=== PATIENT | female | born 1990 ===

== ENCOUNTER 2016-12-07 06:02 | Day surgery (SDC) | payer BC ==
[~2016-12-07] VITALS: Ht 165.1 cm; Wt 72.1 kg
[2016-12-07] VITALS (9 sets, daily range): BP systolic 109–128; BP diastolic 58–86
[~2016-12-07 06:02] MED LIST: BREO ELLIPTA 11 EACH IH
[2016-12-07] MEDS ORDERED: Dexamethasone 4mg/ml vial ONE ×2 (07:24→07:30)
[2016-12-07] MEDS ORDERED: Betadine 10% Oint 15gm TOPIC ONE (07:24)
[2016-12-07] MEDS ORDERED: Bacitracin Oint 15gm Tube TOPIC ONE (07:24)
[2016-12-07] MEDS ORDERED: Bupivacaine 0.5% Inj 30 ml vial INJ ONE (07:24)
[2016-12-07] MEDS ORDERED: Lidocaine 1% Plain 30 ml INJ ONE (07:24)
[2016-12-07] MEDS ORDERED: Midazolam 2mg/2ml Inj ONE (07:30)
[2016-12-07] MEDS ORDERED: Propofol 10mg/ml 20ml IV ONE (07:30)
[2016-12-07] MEDS ORDERED: Lidocaine 1% MPF 10mg/ml 5ml ONE (07:30)
[2016-12-07] MEDS ORDERED: LR 1000ml ONE (07:30)
--- NOTE | 2016-12-07 07:36 | Pre-Procedure Note/Attestation ---
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 I attest that, if there was a reasonable possibility of needing a blood transfusion, the patient (or the patient's legal publications sales representative) was given the [facility] standardized written summary, pursuant to the Surjit Von [place] Blood Safety Act ([place] Health and Safety Code # 1645, as amended). I attest that I re-evaluated the patient just prior to the surgery and that there has been no change in the patient's H&P, except as documented below: KAITLIN GEORGES Dec 07, 2016 07:36
[2016-12-07] MEDS ORDERED: LR 1000ml 1,000 ML IVLG SCH (07:45)
[2016-12-07] MEDS ORDERED: Meperidine 25mg/0.5ml Inj (FOR RIGORS ONLY) IV PRN (07:45)
[2016-12-07] MEDS ORDERED: Norco 5mg/325mg tab ORAL PRN (07:45)
[2016-12-07] MEDS ORDERED: Norco 7.5mg/325mg tab ORAL PRN (07:45)
[2016-12-07] MEDS ORDERED: Hydromorphone 0.5mg/0.5ml inj IVP PRN (07:45)
[2016-12-07] MEDS ORDERED: fentaNYL 100 mcg/2 mL IV PRN (07:45)
[2016-12-07] MEDS ORDERED: Oxycodone/Acetaminophen 5-325 ORAL PRN (07:45)
[2016-12-07] MEDS ORDERED: Midazolam 2mg/2ml Inj IVP PRN (07:45)
[2016-12-07] MEDS ORDERED: Ketorolac 30mg Inj IV PRN (07:45)
[2016-12-07] MEDS ORDERED: DiphenhydrAMINE 50mg/ml Inj IVP PRN (07:45)
[2016-12-07] MEDS ORDERED: Ketorolac 60mg Inj IV PRN (07:45)
[2016-12-07] MEDS ORDERED: Atropine Inj 1mg/10ml Syr IV PRN (07:45)
[2016-12-07] MEDS ORDERED: LORazepam Inj 2mg/ml 1ml IV PRN (07:45)
[2016-12-07] MEDS ORDERED: Metoclopramide 10mg/2ml Inj IVP PRN (07:45)
--- NOTE | 2016-12-07 07:45 | Anethesia Preoperative Eval ---
Anesthesia Pre-op PMH/ROS General Date of Evaluation: Dec 07, 2016 Time of Evaluation: 07:36 Anesthesiologist: Madelyn ASA Score: ASA 2 Mallampati Score Class I : Soft palate, uvula, fauces, pillars visible Class II: Soft palate, uvula, fauces visible Class III: Soft palate, base of uvula visible Class IV: Only hard plate visible Mallampati Classification: Class I Surgeon: Lakia Diagnosis: R Hallux Valgus Surgical Procedure: R Bunionectomy Anesthesia History: none Family History: no anesthesia problems Allergies: Uncoded Allergies: HAIR DYE (Allergy, Severe, 12/06/16) SKIN SWELLING KJ (Allergy, Severe, 12/06/16) SKIN SWELLS UP Medications: see eMAR Past Medical History Pulmonary: Reports: asthma - Bronchitis Anesthesia Pre-op Phys. Exam Physician Exam Last Vital Signs Date Time Temp Pulse Resp B/P Pulse Ox O2 Delivery O2 Flow Rate FiO2 12/07/16 06:33 97.5 60 18 109/58 99 Room Air Constitutional: NAD Neurologic: CN 2-12 intact Cardiovascular: RRR Respiratory: CTA Gastrointestinal: S/NT/ND Airway Exam Mallampati Score: Class I MO: full ROM: full Teeth: intact Anesthesia Pre-op A/P Labs Urine Test Test 12/07/16 06:10 Urine HCG, Qualitative Negative Risk Assessment & Plan Assessment: ASA 2 Plan: GA, BIS Status Change Before Surgery: No Pre-Antibiotics Dru Gram Ancef IV Given Within 1 Hr of Incision: Yes Time Given: 07:47 Marty Joshi MD Dec 07, 2016 07:45
--- NOTE | 2016-12-07 08:14 | 48 Hour Post Anesthesia Eval ---
Post Anesthesia Evaluation Procedure: R Bunionectomy Date of Evaluation: Dec 07, 2016 Time of Evaluation: 11:46 Blood Pressure Systolic: 112 0: 64 Pulse Rate: 78 Respiratory Rate: 18 Temperature (Fahrenheit): 98.6 O2 Sat by Pulse Oximetry: 100 Airway: patent Nausea: No Vomiting: No Pain Intensity: 2 Hydration Status: adequate Cardiopulmonary Status: Stable Mental Status/LOC: patient returned to baseline Follow-up Care/Observations: 0 Post-Anesthesia Complications: 0 Follow-up care needed: ready to discharge Marty Joshi MD Dec 07, 2016 08:14
--- NOTE | 2016-12-07 08:14 | Immediate Post-Op Evaluation ---
Immediate Post-Op Evalulation Immediate Post-Op Evalulation Procedure: R Bunionectomy Date of Evaluation: Dec 07, 2016 Time of Evaluation: 09:40 IV Fluids: 1000 LR Blood Products: 0 Estimated Blood Loss: 7 Urinary Output: 0 Blood Pressure Systolic: 115 Blood Pressure Diastolic: 65 Pulse Rate: 81 Respiratory Rate: 16 O2 Sat by Pulse Oximetry: 100 Temperature (Fahrenheit): 99 Pain Score (1-10): 2 Nausea: No Vomiting: No Complications 0 Patient Status: awake, reacts, patent, extubated, none Hydration Status: adequate Dru Gram Ancef IV Given Within 1 Hr of Incision: Yes Time Given: 07:47 Marty Joshi MD Dec 07, 2016 08:14
--- NOTE | 2016-12-07 09:28 | Brief Operative Note ---
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
--- NOTE | 2016-12-07 13:35 | Diagnostic Imaging Report ---
Indication: POST-OP, status post bunionectomy Technique: 3 views right foot Comparison: none Findings: Patient is status post bunionectomy. Single surgical screw is seen reducing first metatarsal osteotomy. Some retained air from the surgical wound is seen within the soft tissues. No acute fractures. No dislocations. Joint spaces are preserved Impression: Postoperative right foot, as described. No unusual features
--- NOTE | 2016-12-07 21:40 | History and Physical Report ---
DATE OF ADMISSION: 12/07/2016 Podiatric History And Physical HISTORY OF PRESENT ILLNESS: This is a 26-year-old white female, that is admitted today for an elective right foot surgery. The patient has been complaining of pain from her bunions for the past two years. She tried conservative care utilizing orthotics, wide shoe gear, and padding without any relief of pain. The patient was consulted on bunionectomy and elected to proceed with surgery of the right foot first. PAST MEDICAL HISTORY: Remarkable for asthma. MEDICATIONS: Albuterol inhaler p.r.n. ALLERGIES: None. PODIATRIC PHYSICAL EXAMINATION: VASCULAR STUDIES: Dorsalis pedis and posterior tibial arteries are equally palpable measuring 2/4 bilaterally. The capillary filling time is less than 3 seconds to all digits bilaterally. Homans sign is negative. No varicosities are noted in bilateral lower extremities. NEUROLOGICAL EXAMINATION: Reveals intact reflexes of Achilles and patellar measuring 2/4 bilaterally. Sensation, vibration, and proprioception are all intact of bilateral lower extremity. Babinski is negative. Clonus is absent bilaterally. MUSCULOSKELETAL EXAMINATION: Reveals stage III hallux abductovalgus with bunion deformity, bilateral foot. Showing first metatarsophalangeal joint range of motion is full without crepitation bilaterally. Palpable pain is noted over the medial bunion bilaterally. There are semi-reducible hammertoe deformities of digits 2 through 5 bilaterally. Pes planovalgus deformity is noted bilaterally with weight bearing. DERMATOLOGICAL EXAMINATION: There are no lesions or scar on the bilateral lower extremities. The patient has tattoos over the lateral aspect of the foot and right leg. All nails are present and healthy bilaterally. ASSESSMENT: Hallux abductovalgus with bunion deformity. PLAN: The patient is admitted today for outpatient bunionectomy and osteotomy of her right foot. Risks, complications, and alternative treatments were discussed with the patient. The patient was given postoperative medication and postoperative instructions. Patrick Dorman D.P.M. DR: SUNIL JOB#: [id number] CC:
--- NOTE | 2016-12-07 21:40 | Operative Note - Dictated ---
DATE OF OPERATION: 12/07/2016 SURGEON: Patrick Dorman D.P.M. ANESTHESIOLOGIST: Marty Joshi M.D. ANESTHESIA: General. PREOPERATIVE DIAGNOSIS: Hallux abductovalgus with bunion deformity, right foot. POSTOPERATIVE DIAGNOSIS: Hallux abductovalgus with bunion deformity, right foot. PROCEDURE PERFORMED: Chevron osteotomy with screw fixation, right foot. PROCEDURE IN DETAIL: The patient was brought to the operating room and was placed on the operating room table in the supine position. Intravenous sedation was administered by the anesthesiologist. Local anesthesia consisting of 0.5% Marcaine plain, a total of 18 mL was administered to the right foot. An ankle tourniquet was applied to the right lower extremity. The foot was prepped and draped in the usual sterile manner. An Esmarch bandage was utilized to exsanguinate the blood and the right ankle tourniquet was inflated to 250 mmHg. Attention was directed to the right hallux where an approximately 5 to 6 cm dorsal linear skin incision was performed. The incision was deepened utilizing sharp and blunt dissection with care being taken to cauterize and ligate all bleeders. At the level of the capsule, a linear capsulotomy was performed. The capsule was reflected medially and laterally and the head of the first metatarsal was exposed. Utilizing a sagittal saw, the medial eminence was resected in total. The remaining bone was rasped smooth. The wound was copiously flushed utilizing sterile saline. Attention was then directed to the lateral capsule where capsulotomy and lateral release was performed utilizing a 67 blade. At this point, V-type osteotomy was performed with the apex distal and the arms protruding proximally at the level of the metatarsal neck. The osteotomy was through and through, was performed utilizing a sagittal saw. The capital fragment was transposed laterally and fixated onto the metatarsal shaft utilizing 2.5 headless screw, which measured 22 mm. The screw was driven from proximal dorsal to distal plantar. At this point, the overhang was resected utilizing a sagittal saw and the bone was rasped. The wound was copiously flushed utilizing sterile saline. The capsule was then reapproximated utilizing 3-0 Vicryl in a simple interrupted type stitch. The subcutaneous tissue was then reapproximated utilizing 4-0 Vicryl in a buried knot type stitch. The skin was then reapproximated utilizing 5-0 nylon in a simple interrupted type stitch. The wound was dressed utilizing an Adaptic 4 x 4 gauze and 3-inch Kirt. The right ankle tourniquet was deflated and vascular supply was noted to all digits of right foot. The patient tolerated the procedure well and left the operating room to recovery room with all vital signs stable. Patrick Dorman D.P.M. DR: SUNIL JOB#: [id number] CC:
== END 2016-12-07 12:20 | disposition home or self-care (01) ==
LOC: SUR 06:02
DX: M20.11 Hallux valgus (acquired), right foot (principal); M21.611 Bunion of right foot; J45.909 Unspecified asthma, uncomplicated; Z87.891 Personal history of nicotine dependence; Z91.048 Other nonmedicinal substance allergy status
CPT/HCPCS: 28296; 73630; 81025; 97161; C1713; J1100; J2001; J2250; J2405; J2704; J3490; J7120; 94003; 94150

== ENCOUNTER 2017-03-10 07:08 | Day surgery (SDC) | payer BC ==
[~2017-03-10] VITALS: Ht 165.1 cm; Wt 72.1 kg
[2017-03-10] VITALS (10 sets, daily range): BP systolic 103–123; BP diastolic 57–75
--- NOTE | 2017-03-10 08:58 | Pre-Procedure Note/Attestation ---
Pre-Procedure Note/Attestation Complete Prior to Procedure Planned Procedure: left Procedure Narrative: Bunionectomy osteotomy left foot Indications for Procedure Pre-Operative Diagnosis: Hallux Abducto Valgus with bunion deformity left foot Attestation I attest that I discussed the nature of the procedure; its benefits; risks and complications; and alternatives (and the risks and benefits of such alternatives ), prior to the procedure, with the patient (or the patient's legal petroleum products sales representative). I attest that, if there was a reasonable possibility of needing a blood transfusion, the patient (or the patient's legal petroleum products sales representative) was given the [place] [facility] standardized written summary, pursuant to the Surjit [place] Blood Safety Act ([place] Health and Safety Code # 1645, as amended). I attest that I re-evaluated the patient just prior to the surgery and that there has been no change in the patient's H&P, except as documented below: KAITLIN GEORGES Mar 10, 2017 08:58
[2017-03-10] MEDS ORDERED: NS Irrig 1000ml ONE (09:00)
[2017-03-10] MEDS ORDERED: Ketorolac 30mg Inj ONE (09:00)
[2017-03-10] MEDS ORDERED: Propofol 200mg/20ml IV ONE (09:00)
[2017-03-10] MEDS ORDERED: Midazolam 2mg/2ml Inj ONE (09:00)
[2017-03-10] MEDS ORDERED: LR 1000ml ONE (09:00)
[2017-03-10] MEDS ORDERED: Zemuron 50mg/5ml Inj IV ONE (09:00)
[2017-03-10] MEDS ORDERED: Metoclopramide 10mg/2ml Inj ONE (09:00)
[2017-03-10] MEDS ORDERED: Glycopyrrolate 0.2mg/ml 1ml Vial ONE (09:00)
[2017-03-10] MEDS ORDERED: Lidocaine 1% MPF 10mg/ml 5ml ONE (09:00)
[2017-03-10] MEDS ORDERED: fentaNYL 100 mcg/2 mL IV ONE (09:00)
[2017-03-10] MEDS ORDERED: Sterile Water Irrig 1000ml IRRIG ONE (09:00)
[2017-03-10] MEDS ORDERED: Lidocaine 1% Plain 30 ml INJ ONE (09:08)
[2017-03-10] MEDS ORDERED: Bupivacaine 0.5% Inj 30 ml vial INJ ONE (09:08)
[2017-03-10] MEDS ORDERED: Bacitracin Oint 15gm Tube TOPIC ONE (09:08)
[2017-03-10] MEDS ORDERED: Betadine 10% Oint 15gm TOPIC ONE (09:08)
[2017-03-10] MEDS ORDERED: Dexamethasone 4mg/ml vial ONE (09:08)
[2017-03-10] MEDS ORDERED: NS Irrig 1000ml IRRIG ONE (09:15)
--- NOTE | 2017-03-10 09:50 | Anethesia Preoperative Eval ---
Anesthesia Pre-op PMH/ROS General Date of Evaluation: Mar 10, 2017 Time of Evaluation: 09:01 Anesthesiologist: Sahil ASA Score: ASA 2 Mallampati Score Class I : Soft palate, uvula, fauces, pillars visible Class II: Soft palate, uvula, fauces visible Class III: Soft palate, base of uvula visible Class IV: Only hard plate visible Mallampati Classification: Class I Surgeon: Lakia Diagnosis: Left Bunion Surgical Procedure: Left Foot Bunionectomy Anesthesia History: none Family History: no anesthesia problems Allergies: Uncoded Allergies: HAIR DYE (Allergy, Severe, 12/06/16) SKIN SWELLING KJ (Allergy, Severe, 12/06/16) SKIN SWELLS UP Anesthesia Pre-op Phys. Exam Physician Exam Last Vital Signs Date Time Temp Pulse Resp B/P (MAP) Pulse Ox O2 Delivery O2 Flow Rate FiO2 03/10/17 07:41 97.9 63 17 115/60 100 Room Air Constitutional: NAD Neurologic: CN 2-12 intact Cardiovascular: RRR Respiratory: CTA Gastrointestinal: S/NT/ND Airway Exam Mallampati Score: Class I MO: full ROM: full Teeth: intact Anesthesia Pre-op A/P Labs Urine Test Test 03/10/17 07:23 Urine HCG, Qualitative Negative Risk Assessment & Plan Plan: GA Pre-Antibiotics Given Within 1 Hr of Incision: Yes Isra Baxter M.D. Mar 10, 2017 09:50
--- NOTE | 2017-03-10 09:52 | Immediate Post-Op Evaluation ---
Immediate Post-Op Evalulation Immediate Post-Op Evalulation Procedure: Left Foot Buniectomy Date of Evaluation: Mar 10, 2017 Time of Evaluation: 11:00 IV Fluids: 700 Blood Products: 0 Estimated Blood Loss: 0 Urinary Output: 0 Blood Pressure Systolic: 105 Blood Pressure Diastolic: 76 Pulse Rate: 61 Respiratory Rate: 14 O2 Sat by Pulse Oximetry: 99 Temperature (Fahrenheit): 98 Pain Score (1-10): 0 Nausea: No Vomiting: No Patient Status: awake, reacts, patent, extubated Hydration Status: adequate Given Within 1 Hr of Incision: Yes Time Given: 09:20 Isra Baxter M.D. Mar 10, 2017 09:52
[2017-03-10] MEDS ORDERED: LR 1000ml 1,000 ML IVLG SCH (09:53)
--- NOTE | 2017-03-10 09:53 | 48 Hour Post Anesthesia Eval ---
Post Anesthesia Evaluation Procedure: Left Foot Buniectomy Date of Evaluation: Mar 12, 2017 Time of Evaluation: 08:00 Blood Pressure Systolic: 106 0: 63 Pulse Rate: 59 Respiratory Rate: 16 Temperature (Fahrenheit): 97 O2 Sat by Pulse Oximetry: 99 Airway: patent Nausea: No Vomiting: No Hydration Status: adequate Mental Status/LOC: patient returned to baseline Follow-up care needed: patient intructions given Isra Baxter M.D. Mar 10, 2017 09:53
[2017-03-10] MEDS ORDERED: Metoclopramide 10mg/2ml Inj IVP PRN (10:00)
[2017-03-10] MEDS ORDERED: Morphine Sulfate 2mg/ml Inj IVP PRN (10:00)
[2017-03-10] MEDS ORDERED: Ketorolac 30mg Inj IV PRN (10:00)
[2017-03-10] MEDS ORDERED: fentaNYL 100 mcg/2 mL IV PRN (10:00)
--- NOTE | 2017-03-10 10:37 | Brief Operative Note ---
Immediate Post Operative Note Operative Note Pre-op Diagnosis: Hallux Abducto Valgus with bunion deformity left foot Procedure: Bunionectomy osteotomy left foot Post-op Diagnosis: same as pre-op Surgeon: Lakia Anesthesiologist: Isra Baxter Anesthesia: MAC Specimen: yes Complications: none Condition: stable Fluids: 250 Estimated Blood Loss: none Drains: none Implant(s) used?: Yes KAITLIN GEORGES Mar 10, 2017 10:37
[2017-03-10] MEDS ORDERED: Acetaminophen (Non formulary) 100 ML IV ONE (11:00)
--- NOTE | 2017-03-10 13:58 | Diagnostic Imaging Report ---
Indication: Pain Comparison: None Findings: 3 views of the left foot were obtained. Bunionectomy and distal first metatarsal osteotomy noted with fixation screw. In pression: Postop confirmation
--- NOTE | 2017-03-10 16:00 | Operative Note - Dictated ---
DATE OF OPERATION: 03/10/2017 SURGEON: Patrick Dorman D.P.M. ANESTHESIOLOGIST: Isra Baxter M.D. ANESTHESIA: Local standby. PREOPERATIVE DIAGNOSIS: Hallux abductovalgus with bunion deformity of the left foot. POSTOPERATIVE DIAGNOSIS: Hallux abductovalgus with bunion deformity of the left foot. PROCEDURE PERFORMED: Modified Abdi bunionectomy with screw fixation left foot. DESCRIPTION OF THE OPERATION: The patient was brought to the operating room and was placed on the operating room table in the supine position. IV sedation was administered by the anesthesiologist. Local anesthesia consisting of 0.5% Marcaine plain total of 20 mL was administered to the left foot and ankle tourniquet was applied to the left lower extremity. The foot was prepped and draped in usual sterile manner. An Esmarch bandage was utilized to exsanguinate the blood and the left ankle tourniquet was inflated to 250 mmHg. Attention was then directed to the left hallux where an approximately 6 cm dorsal linear skin incision was centered over the first metatarsophalangeal joint. The incision was deepened utilizing sharp and blunt dissection with care being taken to cauterize and ligate all bleeders. At the level of the capsule, a linear capsulotomy was performed. Capsule was reflected medially and laterally and the head of the first metatarsal was exposed. Utilizing a sagittal saw, the medial eminence was resected in total. The remaining bone was rasped smooth. The wound was copiously flushed utilizing sterile saline. At this point, a lateral release was performed utilizing a 67 blade. Attention was then directed to the first metatarsal neck where V-type osteotomy was performed. The capital fragment was transposed laterally and fixated onto the first metatarsal utilizing 45 K-wire. At this point, 2 mm guide K-wire was driven from dorsal proximal to plantar distal. The wire was then utilized to measure the length of the screw. An over drill was then utilized to drive the screw and 24 mm 3.0 headless screw was then used to fixate the osteotomy. Both K-wires were then removed in total. The osteotomy was positioned well. Overhang was then reresected utilizing a sagittal saw. The wound was copiously flushed utilizing sterile saline. Capsule was then reapproximated utilizing 3-0 Vicryl in a simple interrupted type stitch. The subcutaneous tissue was then reapproximated utilizing 4-0 Vicryl in a buried knot type stitch. The skin was then reapproximated utilizing 5-0 nylon in a simple interrupted type stitch. The wound was dressed utilizing an Adaptic, 4 x 4 gauze, and 3 inch Kirt. Left ankle tourniquet was deflated and vascular supply was noted to all digits of left foot. The patient tolerated the procedure well and left the operating room to recovery room with all vital signs stable. Patrick Dorman D.P.M. DR: Michael JOB#: [id number] CC:
--- NOTE | 2017-03-10 19:15 | Pre-op HX & Phy Repo 2 SIG ---
DATE OF ADMISSION: 03/10/2017 PODIATRIC HISTORY AND PHYSICAL HISTORY OF PRESENT ILLNESS: This is a 27-year-old white female that is admitted today for an outpatient bunionectomy of her left foot. The patient has been under my care for the past couple of years for pain secondary to her bunions. She underwent a bunionectomy of her right foot 3 months ago and is now ready to go through the surgery on the left side. PAST MEDICAL HISTORY: Remarkable for asthma and allergic rhinitis. MEDICATIONS: Breo and Claritin p.r.n. ALLERGIES: No known drug allergies. She is allergic to hand dye and michael. PODIATRIC PHYSICAL EXAMINATION: VASCULAR STUDIES: Dorsalis pedis and posterior tibial arteries are equally palpable measuring 2/4 bilaterally. Capillary filling time is less than 3 seconds to all digits bilaterally. Homans sign is negative. No varicosities are noted in bilateral lower extremities. NEUROLOGICAL: Intact reflexes. Achilles and patellar measuring 2/4 bilaterally. Sensation, vibration, and proprioception are all intact in bilateral lower extremity. Babinski is negative. Clonus is absent in bilateral lower extremity. MUSCULOSKELETAL: Stage III hallux abductovalgus with bunion deformity of the left foot. The first metatarsophalangeal joint range of motion on the left is full without crepitation. Palpable pain is noted over the medial bunion area of the left foot. There are semi-reducible hammertoe deformities of digits 2 through 5 bilaterally. Pes valgus deformities noted bilaterally with weightbearing. DERMATOLOGICAL: A scar is present over the right foot from previous bunion surgery. There are no lesions or scars, otherwise, on bilateral lower extremity. All nails are present and healthy bilaterally. The patient has tattoos on bilateral lower extremity. ASSESSMENT: Hallux abductovalgus with bunion deformity, left foot. PLAN: The patient is admitted today for outpatient bunionectomy of her left foot. Risks, complications, and alternative treatments were discussed with the patient. Postoperative medications were given. Postoperative instructions were reviewed with the patient again. Patrick Dorman D.P.M. DR: OMER JOB#: [id number] CC:
== END 2017-03-10 12:35 | disposition home or self-care (01) ==
LOC: SUR 07:08
DX: M20.12 Hallux valgus (acquired), left foot (principal); J45.909 Unspecified asthma, uncomplicated; Z91.048 Other nonmedicinal substance allergy status; Z87.891 Personal history of nicotine dependence
CPT/HCPCS: 28292; 73630; 81025; C1713; J0690; J1100; J1885; J2250; J2405; J2704; J2765; J3010; J3490; J7120; 94003; 94150